=== PATIENT | male | born 2000 | race Caucasian/White ===

== ENCOUNTER 2022-11-09 08:05 | Emergency (ER) | payer OTHER ==
[~2022-11-09] VITALS: Ht 175.3 cm; Wt 91.0 kg
[2022-11-09 08:07] VITALS: BP 145/72
[2022-11-09] MEDS ORDERED: MECL-160 PO (09:56)
== END 2022-11-09 10:15 | disposition home or self-care (01) ==
LOC: EMS 08:10
DX: R20.0 Anesthesia of skin (principal); R42 Dizziness and giddiness; F84.0 Autistic disorder
CPT/HCPCS: 93005; 99283